=== PATIENT | female | born 1940 | race Caucasian/White ===

== ENCOUNTER 2019-05-09 17:51 | Emergency (ER) | payer OTHER ==
[~2019-05-09] VITALS: Ht 162.6 cm; Wt 55.8 kg
[~2019-05-09 17:51] MED LIST: MULTIVITAMINS1 EAC7 PO
[2019-05-09] MEDS ORDERED: ASA81BEC PO (18:04)
[2019-05-09] MEDS ORDERED: CALCIUM 500 MG1 EAC2 PO (18:06)
[2019-05-09] MEDS ORDERED: VITAMIN B-121000 MC2 SUBLING (18:07)
[2019-05-09] MEDS ORDERED: COLACE100 MG PO (18:07)
[2019-05-09] MEDS ORDERED: LORCET 5-325 M1 EACH PO (18:08)
[2019-05-09] MEDS ORDERED: OCEAN104 ML NASAL (18:09)
[2019-05-09 18:55] LABS: ABSOLUTE NEUTROPHILS 6.3 thou/uL (1.4-8.2); BASOPHILS 0.2 % (0.0-2.0); EOSINOPHILS 0.1 % (0.0-3.0); HEMATOCRIT 35.2 % (37.0-47.0); HEMOGLOBIN 11.7 gm/dL (12.0-15.0); LYMPHOCYTES 3.2 % (24.0-44.0); MCH 31.1 pg (26.0-34.0); MCHC 33.3 g/dL (28.0-37.0); MCV 93.3 fL (80.0-100.0); MONOCYTES 8.3 % (1.0-8.0); PLATELET COUNT 199 thou/uL (150-400); POLYS 88.2 % (36.0-66.0); RBC 3.77 mil/uL (4.20-5.00); RDW 14.6 % (10.5-14.5); WBC 7.1 thou/uL (4.0-11.0)
[2019-05-09 19:08] LABS: ANION GAP 9 mmol/L (7-16); BUN 17 mg/dL (7-18); CALCIUM 9.1 mg/dL (8.5-10.1); CHLORIDE 97 mmol/L (98-107); CO2 26 mmol/L (21-32); CREATININE 0.8 mg/dL (0.6-1.0); GLUCOSE 125 mg/dL (74-106); POTASSIUM 4.4 mmol/L (3.5-5.1); SODIUM 132 mmol/L (136-145)
[2019-05-09 19:17] LABS: TROPONIN-I <0.06 ng/mL (<0.06)
[2019-05-09 23:15] VITALS: BP 119/78
--- NOTE | 2019-05-11 08:35 | EKG ---
[facility] [place] [address] ELECTROCARDIOGRAM REPORT Name: SERAFIN JOHSN Room #: DEP [facility].#: [id number] Admission: 05/09/19 Attend Phys: Discharge: 05/09/19 Date of : 40 Report #: [id number] THIS REPORT FOR: cc: Yoselin Rivera Phyllis L. DO Lundgren, Craig H. MD [facility] ~ THIS REPORT FOR: //name// [facility] ED Test Date: 2019-05-09 Test Time: 19:11:56 Pat Name: SERAFIN JOHNS Department: Room: Gender: F Swamper: trupti : 1940 Requested By: Steve Oswald Order Number: [id number] MD: Derrell Caldwell Measurements Intervals [place] Rate: 90 P: 43 TX: 181 QRS: -31 QRSD: 92 T: 62 QT: 362 QTc: 443 Interpretive Statements Sinus rhythm Right ventricular conduction delay Compared to ECG 01/30/2015 13:28:30 No significant change was found Electronically Signed On 05-11-2019 8:34:19 [employer] by Derrell Caldwell [email or web address] <ELECTRONICALLY SIGNED> By: Derrell Caldwell MD, [facility] 05/11/19 0834 10 10 Derrell Caldwell MD, [facility] /EPI
== END 2019-05-09 23:15 | disposition home or self-care (01) ==
LOC: ER 17:51
PROVIDERS: Emergency Medicine
DX: S00.03XA Contusion of scalp, initial encounter (principal); I10 Essential (primary) hypertension; E78.00 Pure hypercholesterolemia, unspecified; W18.39XA Other fall on same level, initial encounter; Y93.89 Activity, other specified; Y92.89 Other specified places as the place of occurrence of the external cause; Y99.8 Other external cause status